=== PATIENT | female | born 1990 | race Caucasian/White ===

== ENCOUNTER 2019-08-21 07:58 | Day surgery (SDC) | payer OTHER ==
[2019-08-21 08:16] LABS: Specific Gravity <= 1.005 (1.005-1.030)
[2019-08-21] MEDS ORDERED: MIDAZOLAM HCL 2 MG/2 ML INJ ONE (08:17)
[2019-08-21] MEDS ORDERED: propofoL 200 MG/20 ML VIAL IV ONE (08:17)
[2019-08-21] MEDS ORDERED: GLYCOPYRROLATE 0.2 MG/ML SYR ONE ×2 (08:17→08:18)
[2019-08-21] MEDS ORDERED: LIDOCAINE 2% MPF 5 ML VIAL ONE (08:18)
[2019-08-21] MEDS ORDERED: FENTANYL CITR 250 MCG/5 ML ONE (08:18)
[2019-08-21] MEDS ORDERED: NS 0.9% VIAL 0 ML ONE (08:20)
[2019-08-21] MEDS ORDERED: CEFAZOLIN SODIUM 1 GM/VIAL ONE (08:20)
[2019-08-21] MEDS ORDERED: GENTAMICIN SULF 80 MG/2ML INJ ONE (08:21)
[2019-08-21] MEDS ORDERED: Ringers Lactate 1,000 ML IV ONE ×2 (08:21)
[2019-08-21] MEDS ORDERED: CEFAZOLIN/SWI 1gm 1 GM/10 ML SYR ONE (08:21)
[2019-08-21] MEDS ORDERED: BACITRACIN 50000 UNIT VIAL ONE (08:21)
[2019-08-21] MEDS ORDERED: SCOPOLAMINE HYDROBROMIDE PATCH TD ONE ×2 (08:22→08:54)
[2019-08-21] MEDS ORDERED: ROCURONIUM 50 MG/5 ML VIAL IV ONE (08:24)
[2019-08-21] MEDS ORDERED: ONDANSETRON 4 MG/2 ML VIAL ONE ×2 (08:24→14:51)
[2019-08-21] MEDS ORDERED: NS 0.9% VIAL 40 ML ONE (08:28)
[2019-08-21] MEDS ORDERED: LIDOCAINE 1% W/EPI 1:100,000 MDV 20 ML VIAL ONE (08:28)
[2019-08-21] MEDS ORDERED: LIDOCAINE JELLY 2%- 5 ML TUBE ONE (09:03)
[2019-08-21] MEDS ORDERED: EPHEDRINE SULF 50 MG/ML VIAL ONE (10:18)
[2019-08-21] MEDS ORDERED: Mastisol Adhesive Liq ONE (10:35)
[2019-08-21] MEDS ORDERED: MORPHINE 10 MG/ML VIAL ONE (11:28)
[2019-08-21] MEDS ORDERED: KETOROLAC 30 MG/ML INJ ONE (12:37)
[2019-08-21] MEDS ORDERED: dexAMETHasone 10 MG/ML VIAL ONE (12:37)
[2019-08-21] MEDS ORDERED: CODEINE 30MG/APAP 300MG TAB ONE (16:08)
[2019-08-21 16:37] VITALS: BP 104/70; TEMP 97.8; O2SAT 97
--- NOTE | 2019-08-22 03:11 | OP ---
Surgeon: Rick Alvarado MD Bung Remover: Ivan. Preoperative Diagnosis: Breast descent. Postoperative Diagnosis: Breast descent. Procedure: Breast lift. Anesthesia: General. Procedure In Detail: After satisfactory induction of general anesthesia, the chest was prepped with DuraPrep, and dry sterile drapes were applied in the usual manner. A 38 mm template was used to outl ine the right and left areolas. Transverse and curvilinear incisions were made. Dermabrader was use d or EpiCut to remove the surrounding skin and then the transverse incision was made and flaps elevat ed toward the sternum, clavicle, anterior axillary line. Subsequent 1.2 cm thick, the right side was approached first. The conization was performed. After this, inferior incisions were made. The con e was performed with 2-0 PDS sutures and the straps were elevated at 12 o'clock, 1:30 and 3 o'clock p osition on the right breast than the straps were sewn in and out of the pectoralis major, back to the base of the cone, to the breast, back to the base of the cone, tied to themselves with 2-0 PDS sutur e. It was done from 12 o'clock, 1:30 straps. The 3 o'clock strap was sewn over the sternum at the 3 o'clock position with 2-0 Ethibond. The left side was done in a mirror image manner. The patient's wounds were then irrigated with antibiotic solution, stapled shut. The patient was sat up. Asymmet ry was marked out. The patient was turned supine and lateral dog ears were excised. A 10 DAVID brought out the axilla and sewn in place with 2-0 silk and the wound was closed with 3-0 Vicryl subcu, 3-0 P DS running subcuticular, tied in the vertical meridian of the breast. Patient was then sat up again and then a 30 template used. Tissue was cored out with the scalpel and electrocautery. The nipple w as delivered, sewn with interrupted 4-0 PDS, followed by 4-0 PDS running subcuticular. Dressings of tincture of benzoin, Steri-Strips, 5 x 5's, fluffs and Pete wrap. The patient tolerated the procedure well and returned to recovery room. The amount of tissue removed from the right breast was 20 g and the left breast was 14 g. JOSE GUADALUPE/LIAT Voice ID: [id number] Report ID: [id number]
== END 2019-08-21 16:25 | disposition home or self-care (01) ==
LOC: OR 07:58
PROVIDERS: ATTEND Specialist
PROC: 0H0V0ZZ Alteration of Bilateral Breast, Open Approach (ICD-10-PCS; principal; 2019-08-21 09:00)
DX: N64.81 Ptosis of breast (principal); Z88.3 Allergy status to other anti-infective agents
CPT/HCPCS: 36415; 84703; 81025; 88305; 19316; J2704; J1580; J2250; J3010; J1100; J0690 ×2; J7120 ×2; J2405 ×2

== ENCOUNTER 2020-05-19 07:40 | Day surgery (SDC) | payer OTHER ==
[2020-05-19] MEDS ORDERED: Ringers Lactate 1,000 ML IV ONE ×2 (08:23→12:19)
[2020-05-19] MEDS ORDERED: SCOPOLAMINE HYDROBROMIDE PATCH TD ONE (08:23)
[2020-05-19] MEDS ORDERED: CEFAZOLIN/SWI 1gm 1 GM/10 ML SYR ONE (08:24)
[2020-05-19 08:52] VITALS: O2SAT 100
[2020-05-19] MEDS ORDERED: LIDOCAINE 1% MPF 5 ML VIAL ONE (08:57)
[2020-05-19] MEDS ORDERED: MIDAZOLAM HCL 2 MG/2 ML INJ ONE (08:57)
[2020-05-19] MEDS ORDERED: propofoL 200 MG/20 ML VIAL IV ONE (08:57)
[2020-05-19] MEDS ORDERED: NS 0.9% VIAL 10 ML ONE (08:57)
[2020-05-19] MEDS ORDERED: FENTANYL CITR 250 MCG/5 ML ONE (08:57)
[2020-05-19] MEDS ORDERED: ONDANSETRON 4 MG/2 ML VIAL ONE (08:58)
[2020-05-19] MEDS ORDERED: VECURONIUM 10 MG/VIAL IV ONE (08:58)
[2020-05-19] MEDS ORDERED: LANO/MINERAL OIL/PETRO 3.5 GM ONE (09:01)
[2020-05-19] MEDS ORDERED: dexAMETHasone 4 MG/ML VIAL ONE (09:02)
[2020-05-19] MEDS ORDERED: GENTAMICIN SULF 80 MG/2ML INJ ONE (10:18)
[2020-05-19] MEDS ORDERED: CEFAZOLIN SODIUM 1 GM/VIAL ONE (10:18)
[2020-05-19] MEDS ORDERED: NS 0.9% VIAL 20 ML ONE (10:18)
[2020-05-19] MEDS ORDERED: BACITRACIN 50000 UNIT VIAL ONE (10:19)
[2020-05-19] MEDS ORDERED: KETOROLAC 30 MG/ML INJ ONE (11:21)
[2020-05-19] MEDS ORDERED: Mastisol Adhesive Liq ONE (12:03)
[2020-05-19] MEDS ORDERED: GLYCOPYRROLATE 0.2 MG/ML SYR ONE (12:04)
[2020-05-19] MEDS ORDERED: FENTANYL CITR 100 MCG/2 ML ONE (12:04)
[2020-05-19] MEDS ORDERED: NEOSTIGMINE 1 MG/ML -5 ML ONE (12:04)
[2020-05-19] MEDS: HYDROMORPHONE HCL 1 MG/ML INJ ONE ×2 (12:34→12:41)
[2020-05-19] MEDS ORDERED: MEPERIDINE HCL 25 MG/ML SYR ONE (13:03)
[2020-05-19 13:49] VITALS: TEMP 97.4
[2020-05-19 14:04] VITALS: BP 108/75
--- NOTE | 2020-05-23 11:04 | OP ---
Surgeon: Rick Alvarado MD Preoperative Diagnosis: Hypomastia scar status post breast lift. Postoperative Diagnosis: Hypomastia scar status post breast lift. Procedure: Scar revision of the areola and inferior fold, breast augmentation, 215 cc round silicone gel fluid . Anesthesia: General. Procedure In Detail: After satisfactory induction of general anesthesia, the chest was prepped with DuraPrep. Dry sterile drapes were applied in the usual manner. Incision was made laterally in the r ight breast both inferior to the previous scar, 4.5 cm in length. Dissection was proceeded down to p ec major muscle. Retroperitoneal space was opened and dissection performed sound was also used. Electrocautery was used for hemostasis and then the wound was irrigated with saline and the t ourniquet was inflated to 250 cc, which was too large, 215 was appropriate size. Identical procedure was done on left side. Then returned to right side. Irrigated the wound with antibiotic solution a nd then a was used to place the implant, 215 fluid around silicone gel implant. Then the wound was closed with 3-0 Vicryl. Identical procedure was done on the left side. Then 30 template w as used on both right and left areolas. Skin was excised. Then a donut mastopexy performed removing scar tissue by using the CV-2 [place] suture and then 4-0 PDS and both breasts. Then th e new inframammary fold was marked. Skin incision was made and the old scar were excised and the fla p was advanced down closing with 3-0 Vicryl, 3-0 PDS running subcuticular medial and later al, tied in the on both sides. Dressed with tinc of benzoin, Steri-Strips , fluffs, and Pete wrap. The patient tolerated procedure well and returned to Recovery. JOSE GUADALUPE/LIAT Voice ID: [id number] Report ID: [id number]
== END 2020-05-19 14:40 | disposition home or self-care (01) ==
LOC: OR 07:40
PROVIDERS: ATTEND Specialist
PROC: 0HB5XZZ Excision of Chest Skin, External Approach (ICD-10-PCS; 2020-05-19)
PROC: 0HUV0JZ Supplement Bilateral Breast with Synthetic Substitute, Open Approach (ICD-10-PCS; principal; 2020-05-19 09:00)
DX: Z42.8 Encounter for other plastic and reconstructive surgery following medical procedure or healed injury (principal); L90.5 Scar conditions and fibrosis of skin; Z20.828 Contact with and (suspected) exposure to other viral communicable diseases
CPT/HCPCS: 36415; 84703; 19342; 11403; J2704; J1100; J1580; J2250; J3010 ×2; J2175; J1170; J2710; J0690 ×2; J7120 ×2; J2405

== ENCOUNTER 2021-06-01 08:11 | Day surgery (SDC) | payer OTHER ==
[2021-06-01] MEDS ORDERED: CEFAZOLIN/NS 1gm 1 GM/50 ML BAG ONE (08:38)
[2021-06-01] MEDS ORDERED: MIDAZOLAM HCL 2 MG/2 ML INJ ONE (08:41)
[2021-06-01] MEDS ORDERED: FENTANYL CITR 100 MCG/2 ML ONE ×2 (08:41→10:34)
[2021-06-01] MEDS ORDERED: LIDOCAINE 1% MPF 5 ML VIAL ONE (08:41)
[2021-06-01] MEDS ORDERED: ROCURONIUM 50 MG/5 ML VIAL IV ONE (08:41)
[2021-06-01] MEDS ORDERED: propofoL 200 MG/20 ML VIAL IV ONE (08:41)
[2021-06-01] MEDS ORDERED: NS 0.9% VIAL 10 ML ONE (08:43)
[2021-06-01] MEDS ORDERED: Ringers Lactate 1,000 ML IV ONE ×2 (08:43→08:44)
[2021-06-01] MEDS ORDERED: CEFAZOLIN SODIUM 1 GM/VIAL ONE (08:43)
[2021-06-01] MEDS ORDERED: CELECOXIB 100 MG CAPSULE ONE (08:44)
[2021-06-01] MEDS ORDERED: GENTAMICIN 100 MG/100 ML BAG 100 ML IV ONE (09:03)
[2021-06-01] MEDS ORDERED: SCOPOLAMINE HYDROBROMIDE PATCH TD ONE (09:27)
[2021-06-01] MEDS ORDERED: LIDOCAINE JELLY 2%- 5 ML TUBE ONE (09:36)
[2021-06-01] MEDS: Mastisol Adhesive Liq ONE ×2 (10:00→10:20)
[2021-06-01] MEDS ORDERED: dexAMETHasone 10 MG/ML VIAL ONE (10:01)
[2021-06-01] MEDS ORDERED: KETOROLAC 30 MG/ML INJ ONE (10:01)
[2021-06-01] MEDS ORDERED: ONDANSETRON 4 MG/2 ML VIAL ONE ×2 (10:12→13:18)
[2021-06-01] MEDS ORDERED: Mastisol Adhesive Liq ONE (10:15)
[2021-06-01] MEDS ORDERED: LANO/MINERAL OIL/PETRO 3.5 GM ONE (12:06)
[2021-06-01] MEDS ORDERED: NEOSTIGMINE 1 MG/ML -5 ML ONE (12:11)
[2021-06-01] MEDS ORDERED: GLYCOPYRROLATE 0.2 MG/ML SYR ONE (12:11)
[2021-06-01] MEDS ORDERED: HYDROMORPHONE HCL 1 MG/ML INJ ONE (13:00)
[2021-06-01] MEDS ORDERED: CODEINE 30MG/APAP 300MG TAB ONE (15:22)
[2021-06-01 16:40] VITALS: BP 113/73; TEMP 98.3; O2SAT 98
--- NOTE | 2021-06-01 20:31 | OP ---
Surgeon: Rick Alvarado MD Preoperative Diagnosis: Scars in the back and right forearm, and hypomastia. Postoperative Diagnosis: Scars in the back and right forearm, and hypomastia. Procedure Performed: Scar revision to the back 3.9 cm, right arm 2.5 cm, and explant of 215 cc silic one gel implant, placement of 395 silicone implant. Anesthesia: General. Procedure In Detail: After satisfactory general anesthesia, the patient was left side down, right si de was prepped with Betadine scrub and Betadine paint, dry sterile drapes. Elliptical incision was m hank over the lesion of the right back. It was then closed with layers of 3-0 Vicryl subcu, then 3-0 PDS running subcuticular, followed by Steri-Strips and 4 x 4 tape. The patient was placed supine. T he right arm was prepped with Betadine scrub and Betadine paint, dry sterile drapes placed. An ellip tical incision was made about 2.5 cm in length. The lesion was then closed with 4-0 Vicryl and 4-0 P DS running subcuticular. Attention was turned to the breast breast prepped with Betadine s crub and Betadine paint, dry sterile drapes applied in usual manner. The previous inframammary incis ions were used about 6 cm in length. The scar was incised inferiorly and laterally. on t he right side first. The incision was made in the pec major muscle above its lateral edge, leaving a cuff of muscle inferior lateral. Then, the implant was removed, it was a 215 cc smooth silicone imp lant. The pocket was extended in all directions, particularly inferiorly and the right side was done and left side done in identical manner. We irrigated the right side with antibiotic solution and th en using a Steen funnel, we placed a 395 cc silicone implant and closed the wound with 3-0 Vicryl an d then 3-0 PDS running subcuticular. Left side done in mirror-image manner. Tincture of benzoin, [place]-Strips, followed by fluffs and Pete wrap. The patient tolerated the procedure well and returned to recovery. JOSE GUADALUPE/LIAT Voice ID: [id number] Report ID: [id number]
== END 2021-06-01 16:30 | disposition home or self-care (01) ==
LOC: OR 08:11
PROVIDERS: ATTEND Specialist
PROC: 0HBDXZZ Excision of Right Lower Arm Skin, External Approach (ICD-10-PCS; 2021-06-01)
PROC: 0HPU0JZ Removal of Synthetic Substitute from Left Breast, Open Approach (ICD-10-PCS; 2021-06-01)
PROC: 0HPT0JZ Removal of Synthetic Substitute from Right Breast, Open Approach (ICD-10-PCS; 2021-06-01)
PROC: 0HRV0JZ Replacement of Bilateral Breast with Synthetic Substitute, Open Approach (ICD-10-PCS; 2021-06-01)
PROC: 0HB6XZZ Excision of Back Skin, External Approach (ICD-10-PCS; principal; 2021-06-01 09:00)
DX: L90.5 Scar conditions and fibrosis of skin (principal); N64.82 Hypoplasia of breast
CPT/HCPCS: 11404; 11403; 19342; J2704; J2250; J3010 ×2; J1100; J1170; J2710; J0690 ×2; J1580; J7120 ×2; J2405 ×2